=== PATIENT | female | born 1950 | race Caucasian/White ===

== ENCOUNTER 2018-01-23 11:16 | Emergency (ER) | payer MEDICARE ==
[~2018-01-23] VITALS: Ht 175.3 cm; Wt 63.6 kg
[2018-01-23 11:23] VITALS: BP 123/59; Ht 175.3 cm; Wt 63.6 kg
== END 2018-01-23 13:46 | disposition home or self-care (01) ==
LOC: D.ER 11:16
DX: I95.9 Hypotension, unspecified (principal); E11.9 Type 2 diabetes mellitus without complications; I11.0 Hypertensive heart disease with heart failure; I50.9 Heart failure, unspecified